=== PATIENT | female | born 1995 | race Caucasian/White ===

== ENCOUNTER → 2017-01-27 | Outpatient (CLI) | payer OTHER | LOC: KOH-I 13:57 | DX: M66.371 Spontaneous rupture of flexor tendons, right ankle and foot (principal); R60.0 Localized edema; Z98.890 Other specified postprocedural states | CPT/HCPCS: 73721 ==

== ENCOUNTER 2021-02-25 06:07 | Emergency (ER) | payer OTHER ==
[~2021-02-25 06:07] MED LIST: CORTIZONE-1057 GM TP; FLONASE 0.05% N16 GM; IBUPROFEN600 MG PO; IBUPROFEN800 MG PO; KEFLEX CAP 500500 MG PO; PERCOCET 5/325 T1 EA PO; PRENATAL VITAM1 EAC5 PO; ROBITUSSIN AC480 ML PO; TAMIFLU75 MG PO; VENTOLIN HFA 66.7 GM INH; VITAMIN C 500500 MG PO; VITAMIN D250000 UNIT PO; ZYRTEC10 M3 PO
== END 2021-02-25 06:55 | disposition home or self-care (01) ==
LOC: ER1 06:07
DX: S20.211A Contusion of right front wall of thorax, initial encounter (principal); Z90.49 Acquired absence of other specified parts of digestive tract; W22.8XXA Striking against or struck by other objects, initial encounter
CPT/HCPCS: 71046; 99283

== ENCOUNTER 2021-07-28 04:15 | Emergency (ER) | payer OTHER ==
[2021-07-28] MEDS ORDERED: LODINE CAP 300300 MG PO (04:47)
== END 2021-07-28 04:56 | disposition home or self-care (01) ==
LOC: ER1 04:15
DX: S83.91XA Sprain of unspecified site of right knee, initial encounter (principal); X58.XXXA Exposure to other specified factors, initial encounter; Y93.89 Activity, other specified; Y92.89 Other specified places as the place of occurrence of the external cause; Y99.0 Civilian activity done for income or pay
CPT/HCPCS: 29530; 73564; 99283

== ENCOUNTER → 2021-08-17 | Outpatient (CLI) | payer OTHER ==
[~2021-08-17] MED LIST changes: +LODINE CAP 300300 MG PO
== END ==
LOC: EMI 16:00
DX: S83.241A Other tear of medial meniscus, current injury, right knee, initial encounter (principal)
CPT/HCPCS: 73721

== ENCOUNTER → 2021-12-04 | Day surgery (SDC) | payer OTHER ==
[~2021-12-04] VITALS: Ht 165.1 cm; Wt 64.0 kg
[~2021-12-04] MED LIST changes: +HYDROCODON-ACE1 EAC2 PO; +IBUPROFEN200 MG PO; +TYLENOL EXTRA500 MG PO
== END | disposition home or self-care (01) ==
LOC: OR 10:15
DX: M23.311 Other meniscus derangements, anterior horn of medial meniscus, right knee (principal); Z20.822 Contact with and (suspected) exposure to COVID-19
CPT/HCPCS: 84703; J0171; J0690; J1100; J1885; J2001; J2250; J2405; J2704; J3010; J7120

== ENCOUNTER 2022-01-17 22:07 | Emergency (ER) | payer OTHER ==
[2022-01-17] MEDS ORDERED: IBUPROFEN600 MG PO (22:46)
[2022-01-17] MEDS ORDERED: CYCLOBENZAPRINE10 MG PO (22:46)
== END 2022-01-18 | disposition home or self-care (01) ==
LOC: ER1 22:07
DX: M25.561 Pain in right knee (principal)
CPT/HCPCS: 73562; 96372; 99283; J1885; J2270